=== PATIENT | male | born 1995 | race Caucasian/White ===

== ENCOUNTER 2017-02-12 10:21 | Emergency (ER) | payer BC ==
[~2017-02-12 10:21] MED LIST: NO MEDS
[2017-02-12 10:28] VITALS: BP_SYST 140
--- NOTE | 2017-02-12 11:06 | NUR ---
Patient to ER bed 6 to gown for evaluation. Side rails up. Report given to Tadeo CHOI.
--- NOTE | 2017-02-12 11:18 | NUR ---
Patient, awake,alert and oriented x 4, BIB self from home for ankle pain. Upon arrival, patient states "I was walking around my home this morning approx 0200, stubbed my toe then rolled my right ankle." He presents as swelling to right ankle, tender to touch, no signs of deformities noted. Denies dizziness, shortness of breath, chills, fever and nausea. No other complaints/injuries per patient, none noted.
--- NOTE | 2017-02-12 11:30 | NUR ---
ER at bedside examining patient.
[2017-02-12 12:29] VITALS: BP_SYST 136
--- NOTE | 2017-02-12 12:31 | NUR ---
Patient given written and verbal discharge instructions and verbalizes understanding. ER MD discussed with patient the results and treatment provided. Patient in stable condition. ID arm band removed. . Patient educated on pain management and to follow up with PMD. Pain Scale 0/10. Opportunity for questions provided and answered.
== END 2017-02-12 12:29 | disposition home or self-care (01) ==
LOC: SED 10:21
DX: S93.401A Sprain of unspecified ligament of right ankle, initial encounter (principal); W18.40XA Slipping, tripping and stumbling without falling, unspecified, initial encounter; Y93.01 Activity, walking, marching and hiking; Y92.89 Other specified places as the place of occurrence of the external cause; Y99.8 Other external cause status
CPT/HCPCS: 99284